=== PATIENT | female | born 1980 | race Caucasian/White ===

== ENCOUNTER 2017-05-07 09:04 | Emergency (ER) | payer MEDICARE, MEDICAID ==
[~2017-05-07] VITALS: Ht 167.6 cm; Wt 56.7 kg
[~2017-05-07 09:04] MED LIST: AMOXICILLIN500 MG PO; AMOXIL500 MG PO; ANTIANXIETY; AUGMENTIN 875 M1 TAB PO; AUGMENTIN 875875 MG PO; CIPRO250 MG PO; CLARITIN-D 12 H1 TAB PO; CLARITIN10 MG PO; CLINDAMYCIN HC300 MG PO; CONCERTA18 MG PO; DIFLUCAN150 MG PO; FLEXERIL10 MG PO; FLOMAX0.4 MG PO; FLONASE 0.05% 121 EA NAS; HYDROCODONE BIT1 T11 PO; HYDROXYZINE PAM25 MG PO; IBU-8800 MG PO; LOMOTIL 0.025 M1 TA1 PO; MACROBID100 M1 PO; MOTRIN600 MG PO; MOTRIN800 MG PO; NAPROSYN500 MG PO; NKHM; OXYCODONE AND A1 TAB PO; PERCOCET 325 MG1 TA2 PO; Phenergan25 MG PO; TESSALON PERLE100 M1 PO; TRAMADOL HCL50 MG PO; TYLENOL W/CODEI1 TA2 PO; ULTRAM50 MG PO; VALTREX1 GM PO; VENLAFAXINE HYD75 M3 PO; VIBRAMYCIN100 MG PO; VICODIN 5/500 505 MG PO; ZANTAC150 MG PO; ZITHROMAX Z PA250 MG PO; ZOFRAN ODT4 MG SL; ZOFRAN4 MG PO; [UNRECOGNIZED DRUG - REMARK]
[2017-05-07 09:36] LABS: BILIRUBIN NEGATIVE (NEGATIVE); BLOOD NEGATIVE (NEGATIVE); CLARITY SL CLOUDY (CLEAR); COLOR YELLOW (YELLOW); GLUCOSE NEGATIVE (NEGATIVE); KETONE NEGATIVE (NEGATIVE); LEUKO ESTERASE TRACE (NEGATIVE); NITRITE NEGATIVE (NEGATIVE); SPECIFIC GRAVITY 1.015 (1.005-1.030)
[2017-05-07 09:46] LABS: BACTERIA 3+
[2017-05-07] MEDS ORDERED: PYRIDIUM200 M1 PO (10:01)
[2017-05-07] MEDS ORDERED: NAPROSYN500 MG PO (10:01)
== END 2017-05-07 11:28 | disposition home or self-care (01) ==
LOC: ED 09:04
PROVIDERS: Student in an Organized Health Care Education/Training Program
DX: M54.5 Low back pain (principal); N39.0 Urinary tract infection, site not specified; I95.9 Hypotension, unspecified; E86.1 Hypovolemia; Z79.899 Other long term (current) drug therapy; Z87.442 Personal history of urinary calculi; Z87.440 Personal history of urinary (tract) infections

== ENCOUNTER → 2017-05-19 | Outpatient (CLI) | payer MEDICARE, MEDICAID ==
[~2017-05-19] MED LIST changes: +PYRIDIUM200 M1 PO
== END | disposition home or self-care (01) ==
LOC: RAD 11:50
DX: M54.5 Low back pain (principal)

== ENCOUNTER 2020-01-11 19:51 | Emergency (ER) | payer OTHER ==
[~2020-01-11] VITALS: Wt 53.1 kg
[2020-01-11] MEDS ORDERED: Motrin,Rufen800 MG PO (22:51)
== END 2020-01-11 23:48 | disposition home or self-care (01) ==
LOC: ED 19:51
DX: S70.11XA Contusion of right thigh, initial encounter (principal); S40.021A Contusion of right upper arm, initial encounter; V43.52XA Car driver injured in collision with other type car in traffic accident, initial encounter; Y93.89 Activity, other specified; Y92.481 Parking lot as the place of occurrence of the external cause; Y99.8 Other external cause status